=== PATIENT | male | born 1970 | race Caucasian/White ===

== ENCOUNTER 2018-01-29 18:11 | Observation (INO) | payer BC ==
[~2018-01-29] VITALS: Ht 185.4 cm; Wt 159.2 kg
[2018-01-29 18:24] VITALS: BP 162/97
[2018-01-29] MEDS ORDERED: HYDROCODONE/APAP 5MG-325MG TAB PO PRN (18:45)
[2018-01-29] MEDS ORDERED: NITROGLYCERIN 0.4 MG SUBL SL PRN (19:00)
[2018-01-29] MEDS ORDERED: LISINOPRIL10 MG PO (19:27)
[2018-01-29 19:57] LABS: CREATINE KINASE MB 4.6 ng/mL (0-5.0)
[2018-01-29] MEDS: LISINOPRIL 20 MG TAB PO SCH (19:58)
[2018-01-29 19:59] VITALS: BP 160/97
[2018-01-29 20:22] VITALS: BP 160/97
[2018-01-30] VITALS: BP 133/80
[2018-01-30] MEDS ORDERED: ASPIRIN 81 MG CHEW TAB PO ONE ×2 (03:00)
[2018-01-30 03:39] LABS: CREATINE KINASE MB 3.1 ng/mL (0-5.0)
[2018-01-30 04:00] VITALS: BP 145/89
[2018-01-30 06:22] LABS: BASOPHILS # (AUTO) 0.1 (0.0-0.1); BASOPHILS % 0.9 % (0.0-1.0); EOSINOPHILS # (AUTO) 0.1 (0.0-0.4); HEMATOCRIT 46.2 % (38.2-49.6); HEMOGLOBIN 16.3 g/dL (14.0-18.0); LYMPHOCYTES # (AUTO) 1.9 (1.0-3.2); LYMPHOCYTES % 27.3 % (18.0-39.1); MEAN CORPUSCULAR HEMOGLOBIN 32.9 pg (28-32); MEAN CORPUSCULAR HGB CONC 35.3 g/dL (31-35); MEAN CORPUSCULAR VOLUME 93.1 fL (81-99); MONOCYTES # (AUTO) 0.7 (0.2-0.8); MONOCYTES % 10.2 % (4.4-11.3); NEUTROPHILS # (AUTO) 4.1 (2.1-6.9); NEUTROPHILS % 59.5 % (38.7-80.0); PLATELET COUNT 172 x10e3/uL (140-360); RED BLOOD COUNT 4.96 x10e6/uL (4.3-5.7); RED CELL DISTRIBUTION WIDTH 13.1 % (11.7-14.4)
[2018-01-30 06:44] LABS: ANION GAP 12.7 mmol/L (8-16); BLOOD UREA NITROGEN 15 mg/dL (7-26); BUN/CREATININE RATIO 18 (6-25); CALCIUM 9.1 mg/dL (8.4-10.2); CARBON DIOXIDE 30 mmol/L (22-29); CHLORIDE 102 mmol/L (98-107); CREATININE, SERUM 0.82 mg/dL (0.72-1.25); EST GLOMERULAR FILTRATION RATE > 60 ML/MIN (60-); GLUCOSE 101 mg/dL (74-118); POTASSIUM 3.7 mmol/L (3.5-5.1); SODIUM 141 mmol/L (136-145)
[2018-01-30 07:59] VITALS: BP 159/98
[2018-01-30] MEDS ORDERED: ASPIRIN 81 MG CHEW TAB PO SCH (09:00)
[2018-01-30] MEDS ORDERED: LISINOPRIL 20 MG TAB PO SCH (09:00)
[2018-01-30] MEDS: METOPROLOL SUCCINATE 25 MG TAB XL PO SCH (09:00)
[2018-01-30] MEDS ORDERED: LISINOPRIL 10 MG TAB PO SCH (09:00)
[2018-01-30 09:14] LABS: EOSINOPHILS % (MANUAL) 2 % (0-7); LYMPHOCYTES % (MANUAL) 16 % (19-48); MONOCYTES % (MANUAL) 4 % (3.4-9.0); MYELOCYTES % (MANUAL) 1 % (0-0); NEUTROPHILS % (MANUAL) 63 % (40-74)
[2018-01-30 09:15] LABS: ANISOCYTOSIS SLIGHT; RBC MORPHOLOGY COMMENT NORMAL
[2018-01-30 09:16] LABS: PLATELET ESTIMATE ADEQUATE; PLATELET MORPHOLOGY COMMENT NORMAL
--- NOTE | 2018-01-30 09:18 | Consultation ---
DATE OF CONSULTATION: January 30, 2018 CARDIOLOGY CONSULTATION REFERRING PHYSICIAN: Vera Stokes MD REASON FOR CONSULTATION: Dyspnea on exertion. HISTORY OF PRESENT ILLNESS: Mr. Igor Nava is a pleasant, 27-year-old man with history of hypertension and obesity, who presented to [facility] with complaint of dyspnea on exertion, worse with physical exertion, which initiated after he was working at home doing some repairs. He reports a prior episode in the past years ago. At that time, he was told he had issues with anxiety-related hyperventilation. Currently, he is symptom-free. REVIEW OF SYSTEMS: A 12-system review is negative except for as noted above. ALLERGIES: CODEINE. PAST MEDICAL HISTORY: As per HPI. SOCIAL HISTORY: No smoking, alcohol or drugs. FAMILY HISTORY: Noncontributory. PHYSICAL EXAMINATION VITALS: Temperature 97.9, heart rate 57, respiratory rate 21, blood pressure 159/98, O2 sat 98% on 2 L per minute nasal cannula. GENERAL: No acute distress. Alert. NECK: No JVD. CHEST: Clear to auscultation. CARDIOVASCULAR: Regular rate and rhythm, normal S1 and S2. No S3 or S4. No murmurs or rubs. ABDOMEN: Soft. Nontender and nondistended. EXTREMITIES: No clubbing, cyanosis or edema. CARDIOVASCULAR MEDICATIONS 1. Lisinopril 10 mg daily. 2. Nitroglycerin 0.4 mg every 5 minutes p.r.n.. chest pain. 3. Aspirin 325 mg daily. 4. Metoprolol succinate 25 mg daily. STUDIES: White blood cells 6.8, hemoglobin 16.3, platelets 172. Sodium 141, potassium 2.7, chloride 102, bicarbonate 30, BUN 15, creatinine 0.82, glucose 101. Creatine 220, then 177. CK-MB was 4.6, then 3.1. Troponin I was 0.002, then 0.002. TELEMETRY: Sinus rhythm. EKG: Sinus rhythm, right bundle-branch block. ASSESSMENT 1. Dyspnea on exertion concerning for unstable angina pectoris. 2. Hypertension. 3. Obesity. 4. Right bundle-branch block. RECOMMENDATIONS: Has ruled out for TX. Obtain echocardiogram and schedule for a stress test this a.m. Further recommendations to follow. Continue current cardiovascular medications and adjust for blood pressure control as needed. Job#: [id number] MH
[2018-01-30 09:43] LABS: CHOL/HDL RATIO 4.2 (3.9-4.7)
--- NOTE | 2018-01-30 10:14 | History and Physical ---
Mr. Nava is a 47-year-old man with a history of hypertension came to the emergency room because for the last couple of days he noticed that every time he tries to walk he gets short of breath. He denies any chest pain, any nausea, any vomiting, any fever, or any cough. PAST MEDICAL HISTORY: He has hypertension. ALLERGIES: HE IS ALLERGIC TO CODEINE. SOCIAL HISTORY: He does not smoke, but he drinks occasionally. SURGICAL HISTORY: Back surgery 3 times, hand surgery, umbilical hernia repair, and left knee surgery. PHYSICAL EXAMINATION GENERAL: Today, he is awake and alert. VITALS: Temperature is 97.9, blood pressure 159/98. HEART: Regular rate. LUNGS: Clear to auscultation. ABDOMEN: Distended and soft. LOWER EXTREMITIES: No edema. No erythema. BLOOD WORK: Potassium is 3.7, creatinine 0.92, glucose 101. White count 6.84, hemoglobin 16.3, hematocrit 46.2. EKG shows a right bundle branch block. Cardiac enzymes so far have been negative. Echocardiogram report is not ready yet. ASSESSMENT AND PLAN 1. Dyspnea on exertion. 2. Abnormal electrocardiogram. 3. Uncontrolled hypertension. PLAN: At the present time, the patient was started on SIDRA inhibitors, beta blockers and aspirin. He has been evaluated by [facility]. He is going to go for a stress test today. If the stress test is negative, probably the patient will be able to go home. All of this was discussed with the patient. All questions were answered to satisfaction. Job#: [id number] ARNIE
--- NOTE | 2018-01-30 10:45 | Consultation ---
DATE OF CONSULTATION: January 30, 2018 REASON FOR CONSULTATION: Shortness of breath. This is a 47-year-old male with a history of hypertension, obesity, venous insufficiency, status post ablation. The patient presents to outlying urgent care facility with complaints of shortness of breath since Sunday. was remodeling his house and became very short of breath, and had to stop due to warm and shortness of breath. Then again yesterday while going to work had to walk from his truck to his office about 200 feet and became extremely short of breath. Went to the urgent care facility for evaluation. From there, was sent to [facility] for further workup. Cardiology was consulted. Patient was seen in the room in no acute distress. Reports above symptoms. Denies any chest pain at this time. There is a remote history of chest pain symptoms in the past. Currently denies. PAST MEDICAL HISTORY: Venous insufficiency, status post ablation, hypertension, obesity, chronic back problems. SURGICAL HISTORY: Lumbar laminectomy times 3, left knee surgery in 2011, left ablation in 2015. FAMILY HISTORY: Mother alive at age of 75 with a history of breast cancer and diabetes. Father alive at age 78 with a history of hypertension and diabetes. Has 1 sister reported as healthy and 1 daughter reported healthy. SOCIAL HISTORY: He is . He is a nonsmoker. Denies any alcohol use. 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 ALLERGIES: CODEINE AND APPARENTLY HAS A RASH. HOME MEDICATIONS 1. Lisinopril with hydrochlorothiazide 20 per 25 mg once a day. 2. Amlodipine 5 mg as needed. REVIEW OF SYSTEMS GENERAL: Denies any weight changes, weight gain, new night sweats, or chills. HEENT: Occasional headaches and lightheadedness. No vision changes. No epistaxis. No sore throat or changes in voice. RESPIRATORY: Positive for shortness of breath as mentioned above. Denies any hemoptysis. CARDIOVASCULAR: Easy fatigability. Denies any chest pain. Denies any palpitations. Denies any orthopnea or PND. Positive for lower extremity edema, which is chronic. GI: Good appetite. No nausea, vomiting, diarrhea, constipation. No melena. : Denies any frequency or urgency. MUSCULOSKELETAL: Positive for back pain and knee pain. PERIPHERAL VASCULAR: Positive for lower extremity edema, which is chronic. Denies any claudication. SKIN: No rashes or bruises. NEUROLOGIC: Denies any lightheadedness, dizziness or any fainting or syncope. PHYSICAL EXAMINATION VITAL SIGNS: Height 73 inches, weight 352 pounds. Temperature 97.1, pulse 57, respiratory rate 21, blood pressure 159/90, pulse ox 98% on room air. GENERAL: Appears stated age and in no acute distress. Obese. HEENT: Normocephalic. Pupils equal and reactive. Extraocular motor intact. Oral mucosa pink. No thyromegaly noted. No JVD. No carotid bruits. CARDIAC: Regular rate and rhythm. PMI in the 4th and 5th intercostal space. LUNGS: Clear to auscultation. No wheezes or crackles. ABDOMEN: Soft, nontender and nondistended. No organomegaly. However, the patient is obese. EXTREMITIES: Bilateral lower extremity +1. There were sclerotic changes bilaterally. VASCULAR: Plus 2 bilateral radial pulses. Plus 1 DP and PT pulses. NEUROLOGIC: Cranial nerves II-XII seem intact. LABS: Sodium 140, potassium 3.7, BUN 15, creatinine 0.8. Hematology: Hemoglobin 16, hematocrit 46, and platelets 172,000. EKG showing right bundle branch block. ASSESSMENT AND PLAN 1. Angina equivalent symptoms. 2. Dyspnea on exertion, worsening, recent history. 3. Hypertension. 4. Abnormal electrocardiogram showing right bundle branch block. 5. Obesity. 6. Venous insufficiency. PLAN: The patient presents with worsening dyspnea on exertion for the past several days. Angina equivalent in nature. Given abnormal EKG, will go ahead and stress the patient today. Will also obtain an echo to evaluate LV function. Continue home medications, antihypertensives. Will go ahead and obtain lipid panel. Further recommendations as clinical course progresses. Thank you very much for this consult. DICTATED BY CICI GARZA NP Job#: [id number] ARNIE
[2018-01-30] MEDS: ASPIRIN 325 MG TAB PO SCH (12:30)
[2018-01-30] MEDS: LISINOPRIL 20 MG TAB PO SCH (12:30)
--- NOTE | 2018-01-30 14:57 | Cardiology Report ---
DATE OF STUDY: January 30, 2018 EXERCISE TREADMILL NUCLEAR STRESS TEST INDICATION FOR STUDY: Chest pain, abnormal EKG. TECHNICAL DETAILS: After risks, benefits, pros and cons of today's exercise nuclear stress test were explained, patient agreed to proceed. The patient was brought to the nuclear lab where he received an 11 mCi dose of technetium 99 tetrofosmin intravenously. After 40 minutes, resting myocardial perfusion imaging was obtained. Afterwards he was brought to the stress lab where 12-lead EKG monitoring and blood pressure monitoring were obtained. He exercised on a Slick protocol for a total duration of 6 minutes 30 seconds. Resting heart rate went from a baseline of 84 beats per minute to a maximum of 157 beats per minute, above our 85% maximum predicted target heart rate of 146 beats per minute. Blood pressure went from a baseline of 131/83 to 220/104. Underlying EKG revealed sinus rhythm, right bundle branch block and nonspecific ST-T wave changes, and with exercise there were no ischemic EKG changes or symptoms. Protocol was terminated due to dyspnea. He did receive a 33 mCi dose of technetium 99 tetrofosmin intravenously 5 minutes 50 seconds into the exercise protocol at a heart rate of 146 beats per minute. After waiting 25 minutes, patient was then taken to the SPECT camera for stress myocardial perfusion imaging. Overall this was a rest/stress protocol. FINDINGS 1. Resting myocardial perfusion imaging reveals largely normal tracer uptake and no scintigraphic areas of ischemia. 2. Stress myocardial perfusion imaging reveals largely normal tracer uptake and no scintigraphic areas of ischemia. 3. The gated calculated left ventricular ejection fraction is 54% based on gated imaging analysis with normal wall motion. 4. The exercise treadmill stress test portion of this exam was negative for ischemic EKG changes or symptoms. CONCLUSIONS 1. Normal myocardial perfusion imaging study revealing normal tracer uptake and no scintigraphic areas of ischemia. 1. Exercise treadmill stress test portion of this exam was negative for any ischemic electrocardiographic changes or symptoms. 2. Overall finding of the stress test was explained to the patient including limitations. Job#: [id number] EV
[2018-01-30 15:53] VITALS: BP 146/91
[2018-01-30 18:15] LABS: CREATINE KINASE MB 4.1 ng/mL (0-5.0)
[2018-01-30 19:05] VITALS: BP 160/90
[2018-01-31] VITALS: BP 147/90
[2018-01-31 05:00] VITALS: BP 148/85
[2018-01-31 07:33] VITALS: BP 137/88
[2018-01-31] MEDS: ASPIRIN 325 MG TAB PO SCH (08:11)
[2018-01-31] MEDS: METOPROLOL SUCCINATE 25 MG TAB XL PO SCH (08:11)
[2018-01-31] MEDS: LISINOPRIL 20 MG TAB PO SCH (08:11)
--- NOTE | 2018-01-31 17:27 | Discharge Summary ---
HOSPITAL COURSE: Mr. Nava is a 47-year-old man with history of hypertension, came to the emergency room complaining of shortness of breath on and off for a couple of days, especially when he was exercising. Denied any other nausea, vomiting, fever or cough. by Cardiology, had a stress test done that came back negative. So, the plan is to discharge him home. PHYSICAL EXAMINATION GENERAL: He is awake and alert. VITAL SIGNS: Temperature is 97.5. Blood pressure is 137/88. HEART: Regular rate. LUNGS: Clear to auscultation. ABDOMEN: Soft. LAB WORK: Potassium of 3.7, creatinine is 0.82, glucose 101. White count 6.84, hemoglobin 16.3, hematocrit is 46.2. Cardiac enzymes were negative. Echocardiogram no acute findings. DISCHARGE DIAGNOSIS 1. Dyspnea on exertion. 2. Abnormal electrocardiogram. 3. Uncontrolled hypertension. PLAN AT THE PRESENT TIME: A cardiac workup was negative. [facility] okayed to discharge the patient home. Continue his SIDRA inhibitor, beta shoshana, and follow up with PCP in 1 week. He is to call me or come back to the emergency room if any recurrent problem. All this was discussed with patient. All questions were answered to satisfaction. FARZANEH ISAACS MD Job#: [id number] EV
== END 2018-01-31 10:31 | disposition home or self-care (01) ==
LOC: IMCU 18:11
PROVIDERS: ADMIT Internal Medicine; ATTEND Internal Medicine
DX: R06.02 Shortness of breath (principal); I10 Essential (primary) hypertension; R94.31 Abnormal electrocardiogram [ECG] [EKG]; Z88.5 Allergy status to narcotic agent; E66.9 Obesity, unspecified; I45.10 Unspecified right bundle-branch block; I87.2 Venous insufficiency (chronic) (peripheral); Z68.42 Body mass index [BMI] 45.0-49.9, adult
CPT/HCPCS: 36415 ×2; 78452; 80048; 80061; 82550 ×2; 82553 ×2; 84484 ×2; 85025; 93017; 93306; A9502; G0378 ×3

== ENCOUNTER 2022-03-10 07:25 | Inpatient (IN) | payer BC ==
[~2022-03-10] VITALS: Ht 182.9 cm; Wt 158.8 kg
[~2022-03-10 07:25] MED LIST: LISINOPRIL10 MG PO
[2022-03-10] MEDS ORDERED: Vancomycin IV 1 GM in SODIUM CHLORIDE 0.9% 250ML 250 ML IV ONE (07:45)
[2022-03-10] MEDS ORDERED: SODIUM CHLORIDE 0.9% 1000ML 1,000 ML IV ONE (07:45)
[2022-03-10 08:00] LABS: BASOPHILS # (AUTO) 0.1 (0.0-0.1); BASOPHILS % 1.1 % (0.0-1.0); EOSINOPHILS # (AUTO) 0.1 (0.0-0.4); EOSINOPHILS % 2.7 % (0.0-6.0); HEMOGLOBIN 17.6 g/dL (14.0-18.0); LYMPHOCYTES # (AUTO) 1.2 (1.0-3.2); LYMPHOCYTES % 23.3 % (18.0-39.1); MEAN CORPUSCULAR HEMOGLOBIN 32.7 pg (28-32); MEAN CORPUSCULAR HGB CONC 33.8 g/dL (31-35); MEAN CORPUSCULAR VOLUME 96.7 fL (81-99); MONOCYTES # (AUTO) 0.7 (0.2-0.8); MONOCYTES % 12.4 % (4.4-11.3); NEUTROPHILS # (AUTO) 3.2 (2.1-6.9); NEUTROPHILS % 60.3 % (38.7-80.0); PLATELET COUNT 196 x10e3/uL (140-360); RED BLOOD COUNT 5.38 x10e6/uL (4.3-5.7); RED CELL DISTRIBUTION WIDTH 13.3 % (11.7-14.4)
[2022-03-10 08:13] LABS: INR 0.95; PROTHROMBIN TIME 13.6 seconds (11.9-14.5)
[2022-03-10 08:14] LABS: PARTIAL THROMBOPLASTIN TIME 26.5 seconds (23.8-35.5)
[2022-03-10 08:20] LABS: ALANINE AMINOTRANSFERASE 58 IU/L (0-55); ALBUMIN 3.8 g/dL (3.5-5.0); ALKALINE PHOSPHATASE 54 IU/L (40-150); ANION GAP 13.7 mmol/L (8-16); BLOOD UREA NITROGEN 20 mg/dL (7-26); BUN/CREATININE RATIO 20 (6-25); CALCIUM 9.4 mg/dL (8.4-10.2); CARBON DIOXIDE 32 mmol/L (22-29); CHLORIDE 97 mmol/L (98-107); CREATINE KINASE 161 IU/L (30-200); CREATININE, SERUM 1.01 mg/dL (0.72-1.25); GLUCOSE 101 mg/dL (74-118); POTASSIUM 3.7 mmol/L (3.5-5.1); SODIUM 139 mmol/L (136-145)
[2022-03-10] MEDS ORDERED: Morphine 4mg INJECTION 4 MG/ML INJ IV PRN (09:15)
[2022-03-10] MEDS ORDERED: ONDANSETRON HCL INJ 2MG/ML 2ML 2 MG/ML VIAL IV PRN (09:15)
[2022-03-10] MEDS: SODIUM CHLORIDE 0.9% 1000ML 1,000 ML IV SCH ×2 (10:00→17:17)
[2022-03-10] MEDS ORDERED: LIDOCAINE 1% W/EPINEPHRINE 20 ML VIAL INJ ONE (14:30)
[2022-03-10] MEDS ORDERED: HYDROCODONE/APAP 5MG-325MG TAB PO PRN (15:15)
[2022-03-10 15:40] VITALS: BP 142/92
[2022-03-10] MEDS ORDERED: AMLODIPINE BESYL5 MG PO (18:49)
[2022-03-10] MEDS ORDERED: CLEOCIN HCL300 MG PO (18:49)
[2022-03-10] MEDS ORDERED: VIBRAMYCIN100 MG PO (18:49)
[2022-03-10 20:00] VITALS: BP 159/111
[2022-03-10] MEDS: Vancomycin IV 1 GM in SODIUM CHLORIDE 0.9% 250ML 250 ML IV SCH (20:38)
[2022-03-10 21:00] VITALS: BP 159/111
[2022-03-10 22:20] VITALS: BP 131/84
[2022-03-11] VITALS: BP 132/86
[2022-03-11] MEDS: SODIUM CHLORIDE 0.9% 1000ML 1,000 ML IV SCH (02:09)
[2022-03-11 04:00] VITALS: BP 137/93
[2022-03-11 06:52] LABS: BASOPHILS # (AUTO) 0.1 (0.0-0.1); BASOPHILS % 1.2 % (0.0-1.0); EOSINOPHILS # (AUTO) 0.2 (0.0-0.4); EOSINOPHILS % 3.6 % (0.0-6.0); HEMATOCRIT 47.6 % (38.2-49.6); HEMOGLOBIN 15.8 g/dL (14.0-18.0); LYMPHOCYTES # (AUTO) 1.2 (1.0-3.2); LYMPHOCYTES % 20.2 % (18.0-39.1); MEAN CORPUSCULAR HEMOGLOBIN 32.7 pg (28-32); MEAN CORPUSCULAR HGB CONC 33.2 g/dL (31-35); MEAN CORPUSCULAR VOLUME 98.6 fL (81-99); MONOCYTES # (AUTO) 0.7 (0.2-0.8); MONOCYTES % 12.5 % (4.4-11.3); NEUTROPHILS # (AUTO) 3.6 (2.1-6.9); NEUTROPHILS % 62.3 % (38.7-80.0); PLATELET COUNT 185 x10e3/uL (140-360); RED BLOOD COUNT 4.83 x10e6/uL (4.3-5.7); RED CELL DISTRIBUTION WIDTH 13.2 % (11.7-14.4)
[2022-03-11 07:18] LABS: ALBUMIN 3.3 g/dL (3.5-5.0); ALBUMIN/GLOBULIN RATIO 1.1 (0.8-2.0); ANION GAP 11.5 mmol/L (8-16); CALCIUM 8.4 mg/dL (8.4-10.2); CREATININE, SERUM 0.84 mg/dL (0.72-1.25); POTASSIUM 3.5 mmol/L (3.5-5.1)
[2022-03-11 08:00] VITALS: BP 143/96
[2022-03-11 08:19] VITALS: BP 143/96
[2022-03-11] MEDS ORDERED: LISINOPRIL 20 MG TAB PO SCH (09:00)
[2022-03-11] MEDS: Vancomycin IV 1 GM in SODIUM CHLORIDE 0.9% 250ML 250 ML IV SCH (09:06)
[2022-03-11] MEDS ORDERED: CEPHALEXIN500 MG PO (09:24)
[2022-03-11] MEDS ORDERED: DOXYCYCLINE HY100 MG PO (09:24)
== END 2022-03-11 11:45 | disposition home or self-care (01) | DRG 603 ==
LOC: ER 07:30 → ERHOLD 09:13 → MED/SURG2 15:29
PROVIDERS: ADMIT Internal Medicine; ATTEND Internal Medicine
PROC: 0J910ZZ Drainage of Face Subcutaneous Tissue and Fascia, Open Approach (ICD-10-PCS; principal; 2022-03-10)
DX: L02.01 Cutaneous abscess of face (principal); L03.211 Cellulitis of face; Z68.42 Body mass index [BMI] 45.0-49.9, adult; I10 Essential (primary) hypertension; Z88.5 Allergy status to narcotic agent; E66.9 Obesity, unspecified; Z20.822 Contact with and (suspected) exposure to COVID-19
CPT/HCPCS: 0223U; 36415; 80053; 82550; 82553; 84484; 85025; 85610; 85730; 87040; 99284; J2270; J2543; J3370; J7030; J7050